=== PATIENT | female | born 1990 | race Caucasian/White ===

== ENCOUNTER 2020-09-01 05:24 | Emergency (ER) | payer OTHER ==
[~2020-09-01] VITALS: Ht 170.2 cm; Wt 89.5 kg
[2020-09-01] MEDS ORDERED: HYDR-3965 PO (06:43)
[2020-09-01] MEDS ORDERED: morphine 4 MG/ML inj SYRINge IM ONE (06:45)
[2020-09-01] MEDS ORDERED: HYDROcodone/acetaminophen 5mg/325mg tablet PO ONE (07:35)
== END 2020-09-01 08:04 | disposition home or self-care (01) ==
LOC: ER 05:25
DX: S92.811A Other fracture of right foot, initial encounter for closed fracture (principal); M54.5 Low back pain; V89.2XXA Person injured in unspecified motor-vehicle accident, traffic, initial encounter; Y93.89 Activity, other specified; Y92.488 Other paved roadways as the place of occurrence of the external cause; Y99.8 Other external cause status
CPT/HCPCS: 29515; 73630; 99283